=== PATIENT | male | born 1955 | race Caucasian/White ===

== ENCOUNTER 2023-12-21 08:45 | Emergency (ER) | payer MEDICARE, BC, SELFPAY ==
[2023-12-21 08:49] VITALS: BP 137/82; PULSE 57; RESP 18; TEMP 36; O2SAT 97; BMI 28.6
--- NOTE | 2023-12-21 08:52 | ED_ITS ---
HPI - General Adult General Date Seen: 12/21/23 Chief complaint: Neuro Symptoms/Altered Deficit Stated complaint: slurred speech,excessive saliva Time Seen by Provider: 12/21/23 08:52 History of Present Illness HPI narrative: 68-year-old male with a history of AFib, coronary artery disease, type 2 diabetes, GERD. Records from [facility] care link include a med list Eliquis Lipitor Metformin Blood sugar testing supplies Records indicate that he had endovenous radiofrequency ablation of greater and small saphenous veins bilaterally on 12/[address] Joyner. This was to treat a history of longstanding lower extremity venous insufficiency with chronic leg pain and skin ulcers. He had been off eliquis for his procedure. There is a note in the [facility] chart indicating that he had a phone call. He had a recent vein procedure. He had ?thick tongue and slurred speech into the 2nd- 3rd and possibly the 4th day? Related Data Home Medications ?Medication ?Instructions ?Recorded ?Confirmed apixaban 5 mg tablet (Eliquis) 5 mg PO BID 12/21/23 12/21/23 atorvastatin 40 mg tablet 40 mg PO DAILY 12/21/23 12/21/23 metformin 500 mg tablet 500 mg PO BID 12/21/23 12/21/23 Allergies Allergy/AdvReac Type Severity Reaction Status Date / Time No Known Drug Allergies Allergy Verified 12/21/23 08:55 PFSH PFS Social History Smoking Status: Never smoker Do you use any of these nicotine containing products: None Second hand tobacco smoke exposure: No How often do you have a drink containing alcohol: 2-3 times a week How many standard drinks containing alcohol do you have on a typical day: 1 or 2 How often do you have six or more drinks on one occasion: Never AUDIT-C Alcohol total score: 3 Non-prescribed substance use: denies use Exam Const: Vital Signs, click to edit/add: Vital Signs - 24 hr 12/21/23 08:49 Temperature 96.8 F L Pulse Rate [Pulse Oximeter] 57 L Respiratory Rate 18 Blood Pressure [Ri ght Upper Arm] 137/82 Pulse Oximetry 97 Oxygen Delivery Me thod Room Air Course Vital Signs Vital signs: Initial Vital Signs Temperature 96.8 F L 12/21/23 08:49 Temperature Source Temporal Artery Scan 12/21/23 08:49 Pulse Rate 57 L 12/21/23 08:49 Pulse Rhythm Regular 12/21/23 08:49 Pulse Strength 3+ Normal 12/21/23 08:49 Respiratory Rate 18 12/21/23 08:49 Blood Pressure 137/82 12/21/23 08:49 Blood Pressure Mean 100 12/21/23 08:49 Blood Pressure Position Sitting 12/21/23 08:49 Pulse Oximetry 97 12/21/23 08:49 Oxygen Delivery Method Room Air 12/21/23 08:49 Vital Signs Temperature 96.8 F L 12/21/23 08:49 Pulse Rate 57 L 12/21/23 08:49 Respiratory Rate 18 12/21/23 08:49 Blood Pressure 137/82 12/21/23 08:49 Pulse Oximetry 97 12/21/23 08:49 Oxygen Delivery Method Room Air 12/21/23 08:49 Temperature 96.8 F L 12/21/23 08:49 Pulse Rate 57 L 12/21/23 08:49 Respiratory Rate 18 12/21/23 08:49 Blood Pressure 137/82 12/21/23 08:49 Pulse Oximetry 97 12/21/23 08:49 Oxygen Delivery Method Room Air 12/21/23 08:49 Medical Decision Making MDM Narrative Medical decision making narrative: 68-year-old male presenting to the ER today for evaluation of slurred speech and drooling. Symptoms actually began about 7 days ago, while he was in the car ride on the way home after vein surgery of his legs. He has a history of AFib, diabetes, and is normally on Eliquis for stroke prophylaxis. However he went off his Eliquis for 3 days prior to his procedure. Initially he and his and his care team thought that his slurred speech was probably a side effects of the sedatives and pain meds he received during his procedure so did not come immediately for evaluation. However his slurred speech persisted for several days. He sent his surgeon a message yesterday and was told to come to be checked out today. Surgeon was concerned that he may have had a stroke. He actually says his symptoms are largely improved. Speech is back to normal but he still has mild trouble with drooling. No other focal deficits such as unilateral numbness or weakness. No headache. No confusion. No visual symptoms. He is outside the window for any intra-arterial or IV intervention or thrombolytics. Nonetheless workup for stroke was undertaken. The with concern for stroke we did obtain CT scan head and CT angio head and neck. Angiogram showed no significant atherosclerotic disease or large vessel occlusions. CT scan does show an apparent subacute infarct in the right prefrontal gyrus. EKG shows sinus rhythm (sinus bradycardia) today. Laboratory workup is reassuri ng. Discussed with Stroke Neurology through [facility], Dr. Edmond. He request that we get MRI to confirm that this is a subacute infarct. MRI does confirm subacute infarct. No other abnormalities. Tele stroke/tele neurology consult was undertaken by Dr. Edmond. Recommendations are that the patient is safe to discharge (since he is weak up from stroke in symptoms are improving). Stroke was related to probable embolic phenomena since he was off his Eliquis. Patient is already resumed his Eliquis and needs to stay on that. No need for additional antiplatelets or anticoagulants at this time. Dr. Edmond recommends outpatient neurology follow-up and primary care follow-up. Needs to have blood pressure and cholesterol checked, diabetes management optimize other risk factors. I had a long, detailed discussion with the patient and his . He is very upset about the stroke (understandably) and blames it on the surgery. It sounds like he had tremendous pain during the surgical procedure and did not have adequate sedation or local anesthesia. Discussed with the patient that it is possible that the physiologic stress of any surgery could potentially cause blood pressure or contribute to her stroke risk. Also be contributing here is probably the absence of anticoagulation which was necessary to safely perform the surgery. Goal here is secondary prophylaxis and minimize chance for recurrent strokes. Plan of care will be for the patient to continue when on Eliquis. He will follow-up with his primary care provider tomorrow for recheck. We believe that there is a same-day appointment at 11:20 a.m. tomorrow if he calls at 8:00 a.m. tomorrow morning to schedule it. He will also follow up with outpatient Neurology. Dr. Edmond recommends [facility] or [facility]. A discussed the risk for recurrent stroke and precautions for return to the ER right away. Lab Data Labs: Lab Results 12/21/23 Range/Units 09:14 WBC 6.00 (4.50-11.00) K/uL RBC 3.96 L (4.30-5.90) m/uL Hgb 12.2 L (13.5-17.5) gm/dL Hct 37.6 (37.0-53.0) % MCV 95 (80-100) fL MCH 31 (26-34) pg MCHC 32 (32-36) gm/dL RDW Coeff of [place] 11.8 (11.5-15.5) % Plt Count 195 (140-440) K/uL Neut % (Auto) 59.4 (42.0-72.0) % Lymph % (Auto) 23.7 (20-44) % [place] % (Auto) 11.7 H (0.0-11.0) % Eos % (Auto) 4.2 (0.0-7.0) % Baso % (Auto) 0.8 (0.0-3.0) % Neut # (Auto) 3.57 (1.7-7.0) K/uL Lymph # (Auto) 1.42 (0.90-2.90) K/uL [place] # (Auto) 0.70 (0.00-0.90) K/UL Eos # (Auto) 0.25 (0.00-0.50) K/uL Baso # (Auto) 0.05 (0.00-0.30) K/uL Abs Immat Gran (auto) 0.01 (0.00-0.30) K/uL Imm/Tot Granulo (auto) 0.2 % INR 1.09 (0.91-1.10) Sodium 135 (135-149) mmol/L Potassium 4.5 (3.6-5.1) mmol/L Chloride 103 (96-114) mmol/L Carbon Dioxide 28 (20-32) mmol/L Anion Gap 4 L (7-15) mEq/L BUN 26 (7-30) mg/dL Creatinine 0.8 (0.5-1.5) mg/dL Estimated Creat Clear 75.44 Estimated GFR 95 ml/min Glucose 122 H (60-115) mg/dL Calcium 9.0 (8.4-10.6) mg/dL Troponin I < 0.01 L (0.01-0.04) ng/mL POC Creatinine 1.0 (0.6-1.3) mg/dl Imaging Data MRI brain: Attestation: I have reviewed the pertinent imaging results. Radiologist's impression: IMPRESSION: Subacute infarct involving the right precentral gyrus, corresponding the hypodense region identified on same day CT. The suspected time frame of the event being 7 days ago corresponds to the imaging findings. ECG Data Attestation: I personally reviewed and interpreted this ECG as follows: Interpretation: Sinus bradycardia Rate: 53 MS: 176 QRS axis: Normal axis. No pathologic Q-waves. ST segment/T wave: No ST segment elevation or depression. QTc: 416 Discharge Plan Discharge Clinical Impression: Cerebrovascular accident Patient Disposition: Home, Self-Care Condition: Stable Instructions: Ischemic Stroke (DC) Additional Instructions: Call the [facility] to schedule a same day appointment on 12/[address] Johnston. The number is [phone]. Please stay on your Eliquis and can you on your other medications. Please call [facility] [phone] to arrange a follow-up visit for your stroke. Prescriptions: No Action atorvastatin 40 mg tablet 40 mg PO DAILY metformin 500 mg tablet 500 mg PO BID Eliquis 5 mg tablet 5 mg PO BID Follow Up/Referrals: Kenneth Johnston MD [Primary Care Provider] - Stand Alone Forms: [employer] Info Instructions
--- NOTE | 2023-12-21 08:57 | CRLHL7_ITS ---
For Patients: As a result of the Century Cures Act, medical imaging exams and procedure reports are released immediately into your electronic medical record. You may view this report before your referring provider. If you have questions, please contact your health care provider. INDICATION: Acute stroke, drooling, facial weakness. TECHNIQUE: CTA head with contrast bolus tracking, 3D angiographic rendering using maximum intensity projection (MIP) and images permanently archived. FINDINGS: There is normal opacification of the intracranial vasculature. There is no large vessel occlusion. No aneurysm is identified. IMPRESSION: Unremarkable head CTA. Please note that all CT scans at this facility use dose modulation, iterative reconstruction, and/or weight-based dosing when appropriate to reduce radiation dose to as low as reasonably achievable. Dictated by Jonathon Lima MD @ 12/21/2023 10:31:38 AM (Electronically Signed)
--- NOTE | 2023-12-21 08:57 | CRLHL7_ITS ---
For Patients: As a result of the Century Cures Act, medical imaging exams and procedure reports are released immediately into your electronic medical record. You may view this report before your referring provider. If you have questions, please contact your health care provider. INDICATION: Drooling, facial weakness TECHNIQUE: Noncontrast axial CT of the head. Coronal and sagittal reformats. Bone and soft tissue algorithms. COMPARISON: No relevant comparison studies available at this institution. FINDINGS: Focal hypoattenuation and loss of biggs-white matter differentiation at the lateral right precentral gyrus. No acute intracranial hemorrhage, midline shift, hydrocephalus or herniation. Chronic-appearing lacunar infarcts at the bilateral cerebellar hemispheres. Unremarkable midline structures. Calcific intracranial atherosclerotic plaquing. Intact calvarium. Clear paranasal sinuses and mastoid air cells. Unremarkable orbits. IMPRESSION: 1. Focal hypoattenuation at the lateral right precentral gyrus, compatible with small acute/subacute infarct. 2. No acute intracranial hemorrhage. Please note that all CT scans at this facility use dose modulation, iterative reconstruction, and/or weight-based dosing when appropriate to reduce radiation dose to as low as reasonably achievable. Dictated by Angela Feng MD @ 12/21/2023 9:53:03 AM (Electronically Signed)
--- NOTE | 2023-12-21 08:57 | CRLHL7_ITS ---
For Patients: As a result of the Century Cures Act, medical imaging exams and procedure reports are released immediately into your electronic medical record. You may view this report before your referring provider. If you have questions, please contact your health care provider. INDICATION: Acute stroke, drooling, facial weakness. TECHNIQUE: CTA neck with contrast bolus tracking, 3D angiographic rendering using maximum intensity projection (MIP) and images permanently archived. FINDINGS: There is no significant carotid artery stenosis or dissection. There is no significant vertebral artery stenosis or dissection. The soft tissues of the neck are within normal limits. The cervical spine is in normal alignment. Degenerative changes are noted in the cervical spine. IMPRESSION: No significant carotid or vertebral artery stenosis or dissection. Please note that all CT scans at this facility use dose modulation, iterative reconstruction, and/or weight-based dosing when appropriate to reduce radiation dose to as low as reasonably achievable. Dictated by Jonathon Lima MD @ 12/21/2023 10:32:33 AM (Electronically Signed)
[2023-12-21 09:25] LABS: Basophils Absolute Auto 0.05 K/uL (0.00-0.30); Basophils Percent Auto 0.8 % (0.0-3.0); Eosinophils Absolute Auto 0.25 K/uL (0.00-0.50); Eosinophils Percent Auto 4.2 % (0.0-7.0); Hematocrit 37.6 % (37.0-53.0); Hemoglobin* 12.2 gm/dL (13.5-17.5); Immature Granulocytes Abs Auto 0.01 K/uL (0.00-0.30); Immature Granulocytes Pct Auto 0.2 %; Lymphocytes Absolute Auto 1.42 K/uL (0.90-2.90); Lymphocytes Percent Auto 23.7 % (20-44); Mean Corpuscular HGB Conc 32 gm/dL (32-36); Mean Corpuscular Hemoglobin 31 pg (26-34); Mean Corpuscular Volume 95 fL (80-100); Monocytes Percent Auto 11.7 % (0.0-11.0); Neutrophils Absolute Auto 3.57 K/uL (1.7-7.0); Neutrophils Percent Auto 59.4 % (42.0-72.0); Platelet Count* 195 K/uL (140-440); RDW Coefficient of Variation % 11.8 % (11.5-15.5); Red Blood Count 3.96 m/uL (4.30-5.90)
[2023-12-21 09:33] LABS: Slide Review Reflex No
[2023-12-21 09:35] LABS: Chloride* 103 mmol/L (96-114); Sodium* 135 mmol/L (135-149)
[2023-12-21 09:36] LABS: Potassium* 4.5 mmol/L (3.6-5.1)
[2023-12-21 09:38] LABS: Creatinine* 0.8 mg/dL (0.5-1.5); Est. Creatinine Clearance* 75.44; Estimated Glomerular Filt Rate 95 ml/min
[2023-12-21 09:39] LABS: Anion Gap 4 mEq/L (7-15); Blood Urea Nitrogen* 26 mg/dL (7-30); Carbon Dioxide* 28 mmol/L (20-32); Glucose* 122 mg/dL (60-115); INR 1.09 (0.91-1.10); Prothrombin Time 14.8 Seconds
[2023-12-21 09:51] LABS: Troponin I* < 0.01 ng/mL (0.01-0.04)
--- NOTE | 2023-12-21 10:44 | CRLHL7_ITS ---
For Patients: As a result of the Cures Act, medical imaging exams and procedure reports are released immediately into your electronic medical record. You may view this report before your referring provider. If you have questions, please contact your health care provider. INDICATION: : stroke protocol. slurred speech. likely subacute stroke. COMPARISON: : CT of the head from December 21, 2023 TECHNIQUE: : MRI of the brain without contrast. FINDINGS: : BRAIN PARENCHYMA: There is hyperintense signal on DWI at the right lateral precentral gyrus, in the region of hypodensity identified on the same day CT. There is no significant corresponding hypointensity on the ADC sequence. There is hyperintense signal in this region on the T2 and FLAIR sequences. Very tiny susceptibility artifact identified on the SWI sequence, may reflect tiny hemorrhage the cortex, likely related to necrosis in the evolution of the infarct. No mass effect or herniation. Mild white matter chronic small vessel ischemic changes and tiny bilateral lacunar type infarcts. Mild diffuse atrophy. VENTRICLES/EXTRA-AXIAL SPACES: No hydrocephalus or extra-axial fluid collections. FLOW VOIDS: Intact. SINUSES/MASTOIDS: Clear. EXTRACRANIAL STRUCTURES: Visualized structures are unremarkable. IMPRESSION: Subacute infarct involving the right precentral gyrus, corresponding the hypodense region identified on same day CT. The suspected time frame of the event being 7 days ago corresponds to the imaging findings. Findings discussed with Dr. Finley at 1:05 pm on 12/21/[address] Perez. Dictated by Darwin Perez MD @ 12/21/2023 1:13:11 PM (Electronically Signed)
[2023-12-21 15:28] VITALS: BP 140/79; PULSE 54; RESP 14; TEMP 36.6; O2SAT 97
== END 2023-12-21 15:35 | disposition home or self-care (01) ==
PROVIDERS: Family Medicine; Emergency Provider Emergency Medicine; PCP Family Medicine
DX: I63.9 Cerebral infarction, unspecified (principal)
CPT/HCPCS: 36415; 70450; 70496; 70498; 70551; 80048; 82565; 84484; 85025; 85610; 93005; 99284; 99285; G0427; Q9967